=== PATIENT | male | born 1985 | race Caucasian/White ===

== ENCOUNTER 2017-01-14 11:59 | Emergency (ER) | payer MEDICAID, OTHER ==
[~2017-01-14] VITALS: Wt 65.0 kg
[2017-01-14] MEDS ORDERED: KETOROLAC 15 MG INJ IV STA (13:32)
[2017-01-14] MEDS ORDERED: SOD CHLORIDE 0.9% 1,000 ML IV STA (13:32)
[2017-01-14] MEDS ORDERED: AMPICILLIN/SULB 3 GM/NS (PMX) 100 ML IVPB ONE (14:00)
[2017-01-14] MEDS ORDERED: DEXAMETHASONE 10 MG/ML 1 ML INJ IV ONE (14:00)
[2017-01-14] MEDS ORDERED: IBUP800T25 PO (14:28)
[2017-01-14] MEDS ORDERED: HYDR-902 PO (14:28)
[2017-01-14] MEDS ORDERED: ONDA4TAB14 PO (14:28)
[2017-01-14] MEDS ORDERED: AMOX1TAB10 PO (14:28)
--- NOTE | 2017-01-14 14:28 | ERD ---
ER Documentation Chief Complaint Date/Time DATE: 01/14/17 TIME: 14:25 Chief Complaint COUGH AND SORE THROAT FOR THE PAST 2 WKS. NO DISTRESS HPI [employer] P[employer] Supervisor use. 31-year-old male who presents with approximately 1 week of sore throat. Worse over the past several days. The patient describes a muffled voice, trismus, sore throat with some painful swallowing. He denies any fevers, no subjective chills. No drooling, no chest pain, no shortness of breath. ROS All systems reviewed and are negative except as per history of present illness. Allergies Allergies: Coded Allergies: No Known Allergy (Unverified , 01/14/17) PMhx/Soc Medical and Surgical Hx: pt denies Medical Hx, pt denies Surgical Hx Hx Alcohol Use: Yes Hx Substance Use: No Hx Tobacco Use: No Smoking Status: Never smoker FmHx Family History: No diabetes Physical Exam Vitals Vital Signs Date Time Temp Pulse Resp B/P Pulse Ox O2 Delivery O2 Flow Rate FiO2 01/14/17 12:10 98.9 100 20 144/82 99 Physical Exam General: Well developed, well nourished, no acute distress Head: Normocephalic, atraumatic. Eyes: Pupils equally reactive, EOM intact ENT: Moist mucous membranes, posterior pharynx with bilateral tonsillar swelling , uvula is deviated right to left with evidence of peritonsillar abscess, soft submental space, tolerating secretions but slightly hoarse voice. Neck: Supple, bilateral cervical chain lymphadenopathy right greater than left Respiratory: Lungs clear bilaterally, no distress Cardiovascular: RRR, no murmurs, rubs, or gallops Abdominal: Soft, non-tender, non-distended, no peritoneal signs : Deferred MSK: No edema, no unilateral swelling, 5/5 strength Neurologic: Alert and oriented, moving all extremities, normal speech, no focal weakness, no cerebellar signs Skin: No rash Psych: Normal mood Results 24 hrs Current Medications Medications (Trade) Dose Ordered Sig/Nalini Route PRN Reason Start Time Stop Time Status Last Admin Dose Admin Sodium Chloride (NS) 1,000 ml @ 1,000 mls/hr Q1H STAT IV 01/14/17 13:32 01/14/17 14:31 01/14/17 14:01 Ketorolac Tromethamine (Toradol) 15 mg ONCE STAT IV 01/14/17 13:32 01/14/17 13:34 DC 01/14/17 14:02 Dexamethasone 10 mg 10 mg ONCE ONCE IV 01/14/17 14:00 01/14/17 14:01 DC 01/14/17 14:02 Ampicillin Sodium/ Sulbactam Sodium (Unasyn 3gm/NS (Pmx)) 100 ml @ 100 mls/hr ONCE ONCE IVPB 01/14/17 14:00 01/14/17 14:59 01/14/17 14:02 Procedures/MDM The patient has clinical findings very consistent with acute right-sided peritonsillar abscess. The patient is protecting his airway and has no evidence of impending airway failure. He has no signs or symptoms concerning for retropharyngeal abscess, Louie angina or deep space infection. The patient will benefit from from pain control, steroids, antibiotics. The patient was given IV Toradol, Decadron 10 mg and a dose of Unasyn. I was able speak to ENT pony trimmer Dr. Don. He states that the patient seems well enough to be seen in his clinic today. I believe this is reasonable. The patient is protecting his airway, no evidence of impending failure. The patient will be given treatment as documented above and be discharged to Dr. Don's clinic for incision and drainage of right-sided peritonsillar abscess. At this time no indication for CT imaging of the neck. The patient was given directions to Dr. Don's office. [employer] P[employer] Supervisor was used during ER course. We discussed follow up with the patient's primary care doctor within 24 to 48 hours as needed. We also discussed return to the emergency room for worsening symptoms or worsening condition. Discharge Medications: Augmentin, Cost, Zofran, Motrin We discussed the use of narcotics including avoidance of operating heavy machinery and driving as well as its addictive properties. Departure Diagnosis: Primary Impression: Peritonsillar abscess Condition: WESLEY Beckford MD Jan 14, 2017 14:27
[2017-01-14 15:02] VITALS: BP 129/85; PULSE 112; RESP 18; TEMP 99.3
== END 2017-01-14 15:03 | disposition home or self-care (01) ==
LOC: FTE 11:59
DX: J36 Peritonsillar abscess (principal)
CPT/HCPCS: 96374; 96375; J0295; J1100; J1885; J7030; Z7502